=== PATIENT | female | born 1975 | race Caucasian/White ===

== ENCOUNTER 2024-07-15 06:03 | Day surgery (SDC) | payer OTHER ==
[~2024-07-15] VITALS: Ht 154.9 cm; Wt 77.8 kg
[~2024-07-15 06:03] MED LIST: ALBU8.5H INH; CETI-24 PO; LEVO200T4 PO; MONT10TA97 PO; VITA200016 PO
[2024-07-15] MEDS ORDERED: NS 1,000 ML IV SCH ×2 (06:30→08:40)
[2024-07-15] MEDS ORDERED: ACETAMINOPHEN 1000MG/100ML IV BAG As Ordered ONE (07:14)
[2024-07-15] MEDS ORDERED: ONDANSETRON 4MG 2ML VIAL As Ordered ONE (07:14)
[2024-07-15] MEDS ORDERED: fentaNYL 100 MCG/2 ML INJECTION As Ordered ONE (07:14)
[2024-07-15] MEDS ORDERED: propofoL 200 MG/20 ML VIAL As Ordered ONE (07:14)
[2024-07-15] MEDS ORDERED: LIDOCAINE 2% 100MG/5ML SDV (FOR ANES.) As Ordered ONE (07:14)
[2024-07-15] MEDS ORDERED: ROCURONIUM BROMIDE 50MG/5ML VIAL As Ordered ONE (07:14)
[2024-07-15] MEDS ORDERED: SUGAMMADEX SODIUM 500 MG/5 ML VIAL (BRIDION) As Ordered ONE (07:14)
[2024-07-15] MEDS ORDERED: MIDAZOLAM INJ 2MG/2ML VIAL As Ordered ONE (07:14)
[2024-07-15] MEDS ORDERED: dexmedeTOMIDine (4MCG/ML)200MCG/50ML BTL (PRECEDEX) As Ordered ONE (07:14)
[2024-07-15] MEDS ORDERED: CHLORHEXIDINE GLUCONATE 0.12 % 15ML UDC (PERIDEX ORAL RINSE) As Ordered ONE (07:18)
[2024-07-15] MEDS: OXYMETAZOLINE 0.05% NASAL SPRAY (AFRIN) As Ordered ONE (07:45)
[2024-07-15] MEDS: AMPICILLIN SOD/SULBACTAM SOD 3 GM in SODIUM CHLORIDE 0.9% 100ML ADD 100 ML IV ONE (07:55)
[2024-07-15] MEDS: LIDOCAINE 2% W/ EPINEPHRINE 1.7 ML DENTAL INJ As Ordered ONE (08:04)
[2024-07-15] MEDS: LIDOCAINE 2% JELLY 6ML SYRINGE As Ordered ONE (08:25)
[2024-07-15] MEDS ORDERED: fentaNYL 100 MCG/2 ML INJECTION IV PRN (08:40)
[2024-07-15] MEDS ORDERED: HYDROMORPHONE HCL 0.5 MG/ 0.5 ML SYRINGE IV PRN (08:40)
[2024-07-15] MEDS ORDERED: ONDANSETRON 4MG 2ML VIAL IV PRN (08:40)
[2024-07-15] MEDS: oxyCODONE 5MG TAB PO PRN (10:17)
[2024-07-15 10:40] VITALS: BP 145/97; TEMP 96.3; O2SAT 95
== END 2024-07-15 10:47 | disposition home or self-care (01) ==
LOC: M SDC 06:03
PROVIDERS: ATTEND Dentist
DX: K02.9 Dental caries, unspecified (principal); F40.232 Fear of other medical care; Z91.040 Latex allergy status; Z79.899 Other long term (current) drug therapy; F17.210 Nicotine dependence, cigarettes, uncomplicated
CPT/HCPCS: 81025; 88300; C9290; D7140; D7210; D7310; D7311; J0131; J0295; J1100; J2250; J2405; J3010